=== PATIENT | female | born 1940 | race Caucasian/White ===

== ENCOUNTER 2021-11-05 08:25 | Inpatient (IN) | payer MEDICARE ==
[~2021-11-05] VITALS: Ht 162.6 cm; Wt 65.3 kg
--- NOTE | 2021-11-05 08:35 | NUR ---
RECEIVED PT WALKING IN BY NAYA C/O GOTION WORSE AND FREQUNT FALL DOWN RESPIRATION SPONT AND EASY
--- NOTE | 2021-11-05 08:45 | NUR ---
SEEN BY DR. BROCK
--- NOTE | 2021-11-05 09:00 | NUR ---
BLOOD DROW BY LAB TACK
--- NOTE | 2021-11-05 09:11 | NUR ---
covid swap done
[2021-11-05 09:15] LABS: BASOPHILS # (AUTO) 0.1 K/uL (0.0-0.2); EOSINOPHILS % (AUTO) 6.8 % (0.0-6.0); HEMATOCRIT 38 % (33-45); HEMOGLOBIN 12.8 g/dL (11.5-14.8); LYMPHOCYTES # (AUTO) 1.3 K/uL (0.8-4.8); MEAN CORPUSCULAR HGB CONC 34 g/dl (31.0-36.0); MEAN CORPUSCULAR VOLUME 91 fL (82-100); MONOCYTES # (AUTO) 0.4 K/uL (0.1-1.30); NEUTROPHILS # (AUTO) 3.4 K/uL (1.8-8.9); NEUTROPHILS % (AUTO) 60.2 % (43.0-81.0); PLATELET COUNT (AUTO) 199 K/uL (150-450); RED BLOOD CELL COUNT(AUTO) 4.18 MIL/uL (4.0-5.2); WHITE BLOOD COUNT (AUTO) 5.6 K/uL (4.3-11.0)
[2021-11-05] MEDS ORDERED: QUET100T PO (09:19)
[2021-11-05] MEDS ORDERED: TRAZ-252 PO (09:19)
[2021-11-05] MEDS ORDERED: MEMA10TA56 PO (09:19)
[2021-11-05] MEDS ORDERED: QUET25TA PO (09:19)
[2021-11-05 09:29] LABS: CALCIUM, SERUM 9.2 mg/dL (8.5-10.1); CARBON DIOXIDE 32 mmol/L (21-32); CHLORIDE 104 mmol/L (98-107); CREATININE 1.1 mg/dL (0.6-1.3); GLUCOSE 90 mg/dL (74-106); SODIUM SERUM 141 mmol/L (136-145); UREA NITROGEN, BLOOD 27 mg/dL (7-18)
--- NOTE | 2021-11-05 11:17 | NUR ---
[facility] CALLED CLIENT SUPPORT ADMINISTRATOR PAGED.
--- NOTE | 2021-11-05 11:30 | NUR ---
UA SENT TO LAB
--- NOTE | 2021-11-05 11:56 | NUR ---
ROOM 116-1
--- NOTE | 2021-11-05 12:16 | NUR ---
REPORT GIVEN TO NURSE BERGER FOR ADELE
--- NOTE | 2021-11-05 12:32 | NUR ---
TO ROOM 116-1 STABL VS AND CODITION
--- NOTE | 2021-11-05 13:00 | NUR ---
HOSPTALIST ( PROVIDER ) AT BED SIDE SPOOK JOANN PERSON
--- NOTE | 2021-11-05 13:15 | NUR ---
TO ROOM 116-1
[2021-11-05] MEDS ORDERED: ONDANSETRON HCL/PF 4 MG/2 ML VIAL IVP PRN (14:00)
[2021-11-05] MEDS ORDERED: Z GUARD REMEDY 4 OZ OINT TP PRN (14:00)
[2021-11-05] MEDS ORDERED: ACETAMINOPHEN 325 MG TABLET PO PRN (14:00)
[2021-11-05] MEDS: ENOXAPARIN SODIUM 40 MG/0.4 ML DISP.SYRIN SQ SCH (15:13)
[2021-11-05 16:00] VITALS: BP 141/71
--- NOTE | 2021-11-05 16:06 | NUR ---
PATIENT KEEP REMOVING TELEMETRY AND WANDERING THE HALLWAY ASKING FOR HER DAUGHTER,REDIRECTED TO HER ROOM,IVY MOSHER NOTIFIED AND ORDERED SITTER AND DC TELE.PRIMARY RN NOTIFIED.
[2021-11-05] MEDS: MEMANTINE HCL 5 MG TABLET PO SCH (16:08)
--- NOTE | 2021-11-05 16:08 | NUR ---
NURSING SUP MADE AWARE OF SITTER.
[2021-11-05] MEDS ORDERED: MEMANTINE HCL 10 MG PO SCH (17:00)
[2021-11-05] MEDS: QUETIAPINE FUMARATE 100 MG TABLET PO SCH (17:35)
--- NOTE | 2021-11-05 19:20 | NUR ---
Rn opening notes Pt is sitting in bed comfortably. Pt is alert and orientedX 2-3. Sitter at the bedside. On room air. No SOB. no S/s of distress noted. IV site LFA# 20 is clean, intact and SL. Safety precautions is maintained. Bed at low position, brakes locked, side rails upX3, hob elevated, bed alarm is on, and call light is within reach. Will continue to monitor.
--- NOTE | 2021-11-05 19:36 | NUR ---
RN CLOSING NOTE PT IS RESTING IN BED WITH 1:1 SITTER AT BEDSIDE. A/O X 1-2 CONFUSED AND FORGETFUL. ON RA SATING 100%. IV ACCESS NOTED ON LEFT FA, NO FLUIDS RUNNING. ALL SAFETY MEASURES IN PLACE, FALL PRECAUTIONS IN PLACE, PT ENDORSED TO CLAIMS TECHNICIAN RN FOR ADELE.
[2021-11-05 20:00] VITALS: BP 149/96
[2021-11-05] MEDS: TRAZODONE 50 MG TABLET PO SCH (21:22)
[2021-11-05] MEDS: IV 1/2NS 1000 ML 1,000 ML IV PRN (21:39)
[2021-11-05] MEDS ORDERED: MAGNESIUM HYDROXIDE 30 ML UDC PO PRN (22:00)
[2021-11-06 04:00] VITALS: BP 144/63
[2021-11-06 05:58] LABS: BILIRUBIN,URINE NEGATIVE (NEGATIVE); COLOR,URINE YELLOW (YELLOW); LEUKOCYTE ESTERASE ,URINE MODERATE (NEGATIVE); NITRITE, URINE NEGATIVE (NEGATIVE); PROTEIN,URINE NEGATIVE (NEGATIVE); UGLUCOSE NEGATIVE (NEGATIVE); UROBILINOGEN,URINE 0.2 EU/dL (0.2)
[2021-11-06 06:17] LABS: BACTERIA,URINE Few /HPF (None Seen); RBC,URINE 0-2 /HPF (0-2); SQUAMOUS EPITHELIAL CELL,UR Few /HPF (None Seen)
--- NOTE | 2021-11-06 06:43 | NUR ---
Rn closing notes Pt is resting in bed comfortably. Pt is alert and orientedX1-2 with episode of confusion and forgetful. Reality orientation provided. Sitter at the bedside. On room air. No SOB. no S/s of distress noted. Vs is stable. Routine med were given as ordered. IV site LFA# 20 is clean, intact and infusing well 1/2ns @ 75 ml/hr. Kept Pt clean, dry and comfortable. Safety precautions is maintained. Bed at low position, brakes locked, side rails upX3, hob elevated, bed alarm is on, and call light is within reach. Will endorse to am nurse for ADELE.
[2021-11-06 07:19] LABS: BASOPHILS # (AUTO) 0.1 K/uL (0.0-0.2); BASOPHILS % (AUTO) 1.1 % (0.0-2.0); EOSINOPHILS % (AUTO) 5.7 % (0.0-6.0); HEMATOCRIT 39 % (33-45); HEMOGLOBIN 13.3 g/dL (11.5-14.8); LYMPHOCYTES # (AUTO) 1.4 K/uL (0.8-4.8); LYMPHOCYTES % (AUTO) 25.6 % (20.0-44.0); MEAN CORPUSCULAR HGB CONC 34 g/dl (31.0-36.0); MEAN CORPUSCULAR VOLUME 91 fL (82-100); MONOCYTES # (AUTO) 0.5 K/uL (0.1-1.30); NEUTROPHILS # (AUTO) 3.3 K/uL (1.8-8.9); NEUTROPHILS % (AUTO) 58.6 % (43.0-81.0); PLATELET COUNT (AUTO) 190 K/uL (150-450); WHITE BLOOD COUNT (AUTO) 5.6 K/uL (4.3-11.0)
[2021-11-06 07:34] LABS: CALCIUM, SERUM 8.8 mg/dL (8.5-10.1); CREATININE 0.9 mg/dL (0.6-1.3); POTASSIUM 3.7 mmol/L (3.5-5.1)
[2021-11-06] MEDS: PANTOPRAZOLE 40 MG TABLET.DR PO SCH (07:35)
--- NOTE | 2021-11-06 07:53 | NUR ---
RN OPENING NOTE RECEIVED PATIENT REPORT FROM NIGHTSHIFT. PATIENT CURRENTLY AWAKE IN BED RESTING. ALERT AND ORIENTED TIMES 1-2, REMEMBERS NAME AND KNOWS SHE IS IN THE HOSPITAL BUT FORGETFUL. ON ROOM AIR WITH OXYGEN SATURATION RANGING FROM 96-99%. MEDICAL SURGICAL STATUS NOTED. PATIENT IS AMBULATORY WITH STANDBY ASSIST. SITTER IS AT THE BEDSIDE. FALL PRECAUTIONS IN PLACE, BED ALARM ON, SIDE RAILS UP. LEFT FOREARM IV ACCESS 20 GAUGE PATENT AND FLUSHING EASILY. WILL CONTINUE PLAN OF CARE AND ANTICIPATE NEEDS.
[2021-11-06 08:00] VITALS: BP 128/81
[2021-11-06] MEDS: QUETIAPINE FUMARATE 25 MG TABLET PO SCH (08:17)
[2021-11-06] MEDS: MEMANTINE HCL 5 MG TABLET PO SCH ×2 (08:18→17:02)
[2021-11-06] MEDS ORDERED: COVID-19 VACC,MRNA(MODERNA) 100 MCG/0.5 ML IM ONE ×2 (11:00)
[2021-11-06] MEDS: CEFTRIAXONE 1 G in IV D5W 50 ML IV SCH (11:52)
[2021-11-06] MEDS: IV 1/2NS 1000 ML 1,000 ML IV PRN (12:06)
[2021-11-06] MEDS: ENSURE ENLIVE 237 ML LIQUID (VANILLA) PO SCH ×2 (12:25→17:01)
[2021-11-06] MEDS: ENOXAPARIN SODIUM 40 MG/0.4 ML DISP.SYRIN SQ SCH (14:52)
[2021-11-06 16:00] VITALS: BP 140/82
[2021-11-06] MEDS: QUETIAPINE FUMARATE 100 MG TABLET PO SCH (17:02)
--- NOTE | 2021-11-06 18:35 | NUR ---
RN CLOSING NOTE PATIENT CURRENTLY AWAKE IN BED RESTING. ALERT AND ORIENTED TIMES 1-2, REMEMBERS NAME AND KNOWS SHE IS IN THE HOSPITAL BUT FORGETFUL. ON ROOM AIR WITH OXYGEN SATURATION RANGING FROM 96-99%. MEDICAL SURGICAL STATUS NOTED. PATIENT IS AMBULATORY WITH STANDBY ASSIST. SITTER IS AT THE BEDSIDE. FALL PRECAUTIONS IN PLACE, BED ALARM ON, SIDE RAILS UP. IV ACCESS ON RIGHT UPPER ARM MIDLINE 18 GAUGE PATENT AND FLUSHING EASILY. WILL ENDORSE TO NIGHTSHIFT RN FOR CONTINUATION OF CARE.
--- NOTE | 2021-11-06 19:35 | NUR ---
RN OPENING NOTE RECEIVED CARE OF PATIENT FROM AM NURSE, PATIENT IS A/O 2, SHOWS SIGNS OF FORGETFULNESS AND CONFUSION. PATIENT ABLE TO VERBALIZE IMMEDIATE NEEDS. PATIENT IN NOT DISCOMFORT OR PAIN AT THIS TIME. PATIENT BREATHING ON ROOM AIR, NO SOB NOTED, O2 SAT 96%. PATIENT'S ASSIGNED SITTER AT BEDSIDE, SAFETY MEASURES IMPLEMENTED PER HOSPITAL PROTOCOLS TO PREVENT FALLS. NO SIGNIFICANT FINDINGS UPON INITIAL NURSING ASSESSMENTS. WILL CARRY OUT PLAN OF CARE.
[2021-11-06] MEDS: TRAZODONE 50 MG TABLET PO SCH (22:13)
[2021-11-07] VITALS: BP 156/79
[2021-11-07] MEDS: IV 1/2NS 1000 ML 1,000 ML IV PRN (03:37)
--- NOTE | 2021-11-07 06:34 | NUR ---
RN CLOSING NOTES WILL ENDORSE CARE OF PATIENT TO AM NURSE WHILE PATIENT IS IN STABLE CONDITIONS. PATIENT IS SLEEPING, WAKES UP TO NAME. NO SIGNIFICANT FINDINGS UPON ALL NURSING ASSESSMENTS. PLAN OF CARE CARRIED OUT, ALL DUE MEDS GIVEN. SAFETY MEASURES KEPT IN PLACE. WILL ENDORSE CARE OF PATIENT TO AM NURSE FOR ADELE.
[2021-11-07 06:42] LABS: BASOPHILS # (AUTO) 0.1 K/uL (0.0-0.2); BASOPHILS % (AUTO) 0.9 % (0.0-2.0); EOSINOPHILS % (AUTO) 5.7 % (0.0-6.0); HEMATOCRIT 41 % (33-45); HEMOGLOBIN 13.5 g/dL (11.5-14.8); LYMPHOCYTES # (AUTO) 1.2 K/uL (0.8-4.8); LYMPHOCYTES % (AUTO) 19.1 % (20.0-44.0); MEAN CORPUSCULAR HGB CONC 33 g/dl (31.0-36.0); MEAN CORPUSCULAR VOLUME 91 fL (82-100); MONOCYTES # (AUTO) 0.6 K/uL (0.1-1.30); MONOCYTES % (AUTO) 9.2 % (2.0-12.0); NEUTROPHILS # (AUTO) 4.3 K/uL (1.8-8.9); NEUTROPHILS % (AUTO) 65.1 % (43.0-81.0); PLATELET COUNT (AUTO) 185 K/uL (150-450); RED BLOOD CELL COUNT(AUTO) 4.45 MIL/uL (4.0-5.2); WHITE BLOOD COUNT (AUTO) 6.5 K/uL (4.3-11.0)
[2021-11-07 07:07] LABS: CALCIUM, SERUM 8.7 mg/dL (8.5-10.1); CREATININE 0.9 mg/dL (0.6-1.3); MAGNESIUM 2.1 mg/dL (1.8-2.4); POTASSIUM 3.7 mmol/L (3.5-5.1)
--- NOTE | 2021-11-07 07:20 | NUR ---
RN OPENING NOTE RECEIVED PATIENT REPORT FROM [employer]. PATIENT CURRENTLY AWAKE IN BED RESTING. ALERT AND ORIENTED TIMES 1-2, REMEMBERS NAME AND KNOWS SHE IS IN THE HOSPITAL BUT FORGETFUL. ON ROOM AIR WITH OXYGEN SATURATION RANGING FROM 96-99%. MEDICAL SURGICAL STATUS NOTED. PATIENT IS AMBULATORY WITH STANDBY ASSIST. SITTER IS AT THE BEDSIDE. FALL PRECAUTIONS IN PLACE, BED ALARM ON, SIDE RAILS UP. IV ACCESS ON RIGHT UPPER ARM MIDLINE 18 GAUGE PATENT AND FLUSHING EASILY, CURRENTLY RUNNING 0.45 NORMAL SALINE AT 75 MLS/HR. WILL CONTINUE PLAN OF CARE AND ANTICIPATE NEEDS.
[2021-11-07] MEDS: PANTOPRAZOLE 40 MG TABLET.DR PO SCH (07:37)
[2021-11-07] MEDS: ENSURE ENLIVE 237 ML LIQUID (VANILLA) PO SCH ×3 (07:38→17:50)
[2021-11-07 08:00] VITALS: BP 125/59
[2021-11-07] MEDS: MEMANTINE HCL 5 MG TABLET PO SCH ×2 (09:13→17:52)
[2021-11-07] MEDS: QUETIAPINE FUMARATE 25 MG TABLET PO SCH (09:13)
[2021-11-07] MEDS: CEFTRIAXONE 1 G in IV D5W 50 ML IV SCH (13:34)
[2021-11-07] MEDS: ENOXAPARIN SODIUM 40 MG/0.4 ML DISP.SYRIN SQ SCH (15:39)
[2021-11-07 16:00] VITALS: BP 121/66
[2021-11-07] MEDS: QUETIAPINE FUMARATE 100 MG TABLET PO SCH (17:52)
--- NOTE | 2021-11-07 18:02 | NUR ---
patient transferred to [facility]. hand off report given to khadar.
--- NOTE | 2021-11-07 18:22 | NUR ---
PATIENT TRANSFERRED FROM ROOM 116 REPORTED BY [facility]. PATIENT AO X 2, DX IS FREQUENT FALLS, ROOM AIR O2SAT 97%, SITTER AT BED SIDE FOR SAFETY. KEPT BED ALARM IS ON AT ALL THE TIME. WILL ENDORSE TO JEWELLERY DESIGNER.
--- NOTE | 2021-11-07 19:23 | NUR ---
RN OPENING NOTE PATIENT CURRENTLY AWAKE IN BED RESTING. ALERT AND ORIENTED TIMES 1-2, REMEMBERS NAME AND KNOWS SHE IS IN THE HOSPITAL BUT FORGETFUL. ON ROOM AIR WITH OXYGEN SATURATION RANGING FROM 96-99%. PATIENT IS AMBULATORY WITH STANDBY ASSIST. FALL PRECAUTIONS IN PLACE, BED ALARM ON, SIDE RAILS UP. IV ACCESS ON RIGHT UPPER ARM MIDLINE 18 GAUGE PATENT AND FLUSHING EASILY, CURRENTLY RUNNING 0.45 NORMAL SALINE AT 75 MLS/HR. WILL CONTINUE TO MONITOR.
[2021-11-07 20:00] VITALS: BP 131/66
[2021-11-07] MEDS: TRAZODONE 50 MG TABLET PO SCH (21:03)
--- NOTE | 2021-11-08 06:31 | NUR ---
RN CLOSING NOTE PATIENT CURRENTLY AWAKE IN BED RESTING. ALERT AND ORIENTED TIMES 1-2, REMEMBERS NAME AND KNOWS SHE IS IN THE HOSPITAL BUT FORGETFUL. ON ROOM AIR WITH OXYGEN SATURATION RANGING FROM 96-99%. PATIENT IS AMBULATORY WITH STANDBY ASSIST. FALL PRECAUTIONS IN PLACE, BED ALARM ON, SIDE RAILS UP. IV ACCESS ON RIGHT UPPER ARM MIDLINE 18 GAUGE PATENT AND FLUSHING EASILY, CURRENTLY RUNNING 0.45 NORMAL SALINE AT 75 MLS/HR. ALL NEEDS MET. KEPT CLEAN AND DRY. ALL DUE MEDS GIVEN. PER CASE MANAGEMENT NOTES PT TO BE D/C [facility] RAPID EXTRACTOR OPERATOR SET UP FOR 2:00PM. WILL ENDORSE CARE TO DAY SHIFT NURSE FOR ADELE.
--- NOTE | 2021-11-08 07:28 | NUR ---
MS RN OPENING NOTE RECEIVED PT ASLEEP IN BED, EASILY AROUSED. A/O X1-2, WITH FORGETFULNESS. REORIENTED PT NEEDED. ON RA TOLERATING WELL. NO SOB NOTED. NOT IN ANY SIGN OF RESPIRATORY DISTRESS. IV ACCESS IN [place] MIDLINE G #18 INTACT AND PATENT WITH 1/2 NS INFUSING AT 75ML/HR. SAFETY MEASURES IN PLACE: BED IN LOWEST AND LOCKED POSITION, SIDE RAILS UPX2, CALL LIGHT WITHIN REACH. WILL CONTINUE TO MONITOR PT.
[2021-11-08] MEDS: PANTOPRAZOLE 40 MG TABLET.DR PO SCH (08:04)
[2021-11-08] MEDS: ENSURE ENLIVE 237 ML LIQUID (VANILLA) PO SCH ×2 (08:04→12:29)
[2021-11-08] MEDS: MEMANTINE HCL 5 MG TABLET PO SCH (08:43)
[2021-11-08] MEDS: QUETIAPINE FUMARATE 25 MG TABLET PO SCH (08:43)
[2021-11-08 09:00] VITALS: BP 135/64
[2021-11-08] MEDS: CEFTRIAXONE 1 G in IV D5W 50 ML IV SCH (12:28)
[2021-11-08] MEDS ORDERED: NITR100C15 PO (13:33)
--- NOTE | 2021-11-08 14:20 | NUR ---
CORPORATION OFFICER NOTE PT DISCHARGED TO THE [facility] IN STABLE CONDITION. PT A/O X1-2, WITH FORGETFULNESS. REORIENTED PT NEEDED. ON RA, TOLERATING WELL WITH SPO2 95%. NO SOB NOTED. NOT IN ANY SIGN OF RESPIRATORY DISTRESS. VITAL SIGNS TAKEN, STABLE, AND RECORDED. SKIN IS INTACT WITH NO SKIN ISSUES NOTED. ALL BELONGINGS ACCOUNTED FOR. DISCHARGED INSTRUCTIONS AND HEALTH TEACHINGS GIVEN TO PT AND PT VERBALIZED UNDERSTANDING. IV ACCESS IN [place] MIDLINE G #18 REMOVED WITH NO ACTIVE BLEEDING NOTED. DRY PRESSURE DRESSING APPLIED AT SITE. REPORT GIVEN EARLIER TO MATT PADILLA OF [facility]. PT LEFT THE UNIT AT 1410 VIA GURNEY ACCOMPANIED BY 2 [facility] [employer] REPRESENTATIVE OF [facility]SP[facility]. MD AND CHARGED NURSE AWARE OF DISCHARGED.
== END 2021-11-08 14:30 | DRG 682 ==
LOC: ER 08:35 → MEDSG1 12:09 → TELE1 13:53 → MEDSG1 15:55 → MED 11-07 18:18
PROVIDERS: ADMIT Nurse Practitioner Family; ATTEND Nurse Practitioner Family
PROC: 05HB33Z Insertion of Infusion Device into Right Basilic Vein, Percutaneous Approach (ICD-10-PCS; principal; 2021-11-06)
DX: N17.0 Acute kidney failure with tubular necrosis (principal); G93.41 Metabolic encephalopathy; N39.0 Urinary tract infection, site not specified; R62.7 Adult failure to thrive; G30.9 Alzheimer's disease, unspecified; F02.80 Dementia in other diseases classified elsewhere, unspecified severity, without behavioral disturbance, psychotic disturbance, mood disturbance, and anxiety; R29.6 Repeated falls; Z79.899 Other long term (current) drug therapy; B96.89 Other specified bacterial agents as the cause of diseases classified elsewhere; G31.83 Neurocognitive disorder with Lewy bodies; Z90.710 Acquired absence of both cervix and uterus
CPT/HCPCS: 36410; 36415; 80048-TC; 81001; 83735-TC; 85025-TC; 87081-TC; 87086-TC; 92526; 92611-TC; 97116-TC; 97530-TC; C9803; G0378; J0696; J1650; J3490; J7060